=== PATIENT | male | born 1995 | race Hispanic/Latino ===

== ENCOUNTER 2020-06-30 21:16 | Inpatient (IN) | payer SELFPAY ==
[~2020-06-30 21:16] MED LIST: Iopamidol-370 76% 500 ML 1 ML ONE
[2020-06-30 21:47] LABS: #Eosinphils 0.1 thou/uL (0.0-0.7); #Lymphocytes 1.6 thou/uL (1.20-3.40); #Monocytes 1.2 thou/uL (0.11-0.59); #Neutrophils 9.6 thou/uL (1.40-6.50); %Eosinophils 0.8 % (0.0-10.0); %Lymphocytes 13.1 % (21.0-51.0); %Monocytes 9.5 % (0.0-10.0); %Neutrophils 76.6 % (42.0-75.0); Hemoglobin 14.4 g/dL (14.0-18.0); Mean Corpuscular HGB CONC 33.5 g/dL (32.0-36.0); Mean Corpuscular Hemoglobin 28.6 pg (27.0-31.0); Mean Corpuscular Volume 85.4 fL (78.0-98.0); Mean Platelet Volume 7.7 fL (7.4-10.4); Platelet Count 261 thou/uL (130-400); RBC Distribution Width 11.2 % (11.5-14.5); Red Blood Cell (RBC) Count 5.05 mill/uL (4.70-6.10); White Blood Cell (WBC) Count 12.5 thou/uL (4.8-10.8)
[2020-06-30 21:52] LABS: INR-International Normal Ratio 1.2; Prothrombin Time 15.6 sec (12.0-14.7)
[2020-06-30 21:53] LABS: PTT 44.7 sec (22.9-36.1)
[2020-06-30 22:07] LABS: ALT (SGPT) 12 U/L (8-55); AST (SGOT) 14 U/L (5-34); Albumin 4.4 g/dL (3.5-5.0); Alkaline Phosphatase 79 U/L (40-110); Anion Gap 17 mmol/L (10-20); BUN (Urea Nitrogen) 14 mg/dL (8.9-20.6); Bilirubin, Total 0.7 mg/dL (0.2-1.2); Calc. Creatinine Clearance 0 mL/min (70-130); Calcium 9.5 mg/dL (7.8-10.44); Carbon Dioxide 25 mmol/L (22-29); Chloride 103 mmol/L (98-107); Glucose 144 mg/dL (70-105); Potassium 3.3 mmol/L (3.5-5.1); Protein, Total 8.4 g/dL (6.0-8.3); Sodium 142 mmol/L (136-145)
[2020-06-30] MEDS ORDERED: Cefepime 2 GM VIAL ONE (22:25)
[2020-06-30] MEDS ORDERED: Vancomycin 1 GM/200 ML BAG ONE (23:17)
--- NOTE | 2020-06-30 23:20 | CT ---
CT ABDOMEN AND PELVIS WITH IV CONTRAST: HISTORY: Right lower quadrant boil which started last week and has been getting worse. FINDINGS: The lung bases are clear. No calcific gallstones are seen liver, spleen, pancreas, adrenal glands and kidneys are normal. No free air, free fluid or lymphadenopathy seen in the abdomen or pelvis. The small bowel loops aren't abnormally dilated. A normal-appearing appendix is present. The aorta is of normal caliber. No acute osseous abnormalities are seen. There is inflammatory change in the subcutaneous fat of the right lower quadrant anterior abdominal w all with with a 4.6 x 2.8 x 4.5 cm fluid collection. IMPRESSION: Findings suspicious for abscess formation in the anterior abdominal wall of the right low er quadrant.
[2020-07-01] MEDS ORDERED: diphenhydrAMINE 50 MG/ML VIAL ONE (00:19)
[2020-07-01] MEDS ORDERED: Lidocaine 1% (PF) 30 ML VIAL ONE ×2 (00:44→02:33)
[2020-07-01] MEDS ORDERED: Midazolam HCl 2 mg/2 ml Vial ONE (00:44)
--- NOTE | 2020-07-01 01:24 | PDOC.FPRHP ---
- History of Present Illness Chief Complaint: abdominal pain, swelling History of Present Illness: This is a 25M who presented to the ED for a worsening RLQ superficial abdominal wound. He first noticed what he thought was an ingrown hair ~7 days ago. He does not remember any inciting injury but says he shaved ~1mo ago; he also states a lot of pressure is put on this area by his jeans. Initially, it was hard and he was placing bandages and "[place]" on it daily, but then the area continued to grow and become more red, painful, warm. On Wednesday it blistered and he decided to pop it. It drained blood but no pus or discolored drainage. That day he started feeling malaise and like he might have a fever but did not take his temp. Since then, it has continued to drain and he has continued to feel poorly. His mom finally convinced him to come in to get it evaluated. In the ED, he was found to be febrile, tachycardic, with a WBC of 12.5, so he received 1L NS, Vancomycin, and Cefepime. A CT abdomen/pelvis showed a 4.6 x 2.8 x 4.5 cm fluid collection in the ant abdominal wall of the RLQ. An I&D was attempted but nothing was expressed. U/S of the abscess did not show an accessible fluid collection. ED Course: Vancomycin, Cefepime, Midazolam, Benadryl, 1L NS bolus - Allergies/Adverse Reactions Allergies Allergy/AdvReac Type Severity Reaction Status Date / Time No Known Allergies Allergy Unverified 07/01/20 02:51 - History PMHx: None PSHx: None FHx: Noncontributory Social: Social drinker, no tobacco/drugs - Review of Systems General: reports: fever/chills Eyes: denies: vision changes ENT: denies: nasal congestion Respiratory: denies: cough, congestion, shortness of breath Cardiovascular: denies: chest pain, palpitation Gastrointestinal: reports: abdominal pain. denies: nausea, vomiting, diarrhea Genitourinary: denies: dysuria Skin: denies: rashes, itching Musculoskeletal: denies: pain, swelling - Vital signs BP: 128/74, MAP: 92, Pulse: 85, Resp: 16, Pain: 4, O2 sat: 100 on (Room Air), T 99.8F - Physical Exam Constitutional: NAD, awake, alert and oriented, well developed HEENT: normocephalic and atraumatic, EOMI, grossly normal vision, grossly normal hearing Neck: supple, FROM, trachea midline Chest: no-tender to palpation, no lesions Heart: RRR, normal S1/S2, no murmurs/rubs/gallops, no edema Lungs: CTAB, no respiratory distress, good air movement Abdomen: bowel sounds present, no masses/distention -Abdomen: Indurated, erythematous, edematous region surrounding the mouth of the abscess. There is a 5x3cm opening with jagged edges and some pus. It is tender to palpati on. There is no tenderness in the surrounding abdomen and bowel sounds are present. No peritoneal signs. Musculoskeletal: normal structure, normal tone, ROM grossly normal Neurological: no focal deficit Skin: no rash/lesions Heme/Lymphatic: no unusual bruising or bleeding Psychiatric: normal mood and affect, good judgment and insight, intact recent and remote memory FMR H&P: Results - Labs Result Diagrams: 07/01/20 05:32 07/01/20 05:32 Lab results: WBC 12.5 thou/uL (4.8-10.8) H 06/30/20 21:31 Hgb 14.4 g/dL (14.0-18.0) 06/30/20 21:31 Hct 43.1 % (42.0-52.0) 06/30/20 21:31 MCV 85.4 fL (78.0-98.0) 06/30/20 21:31 Plt Count 261 thou/uL (130-400) 06/30/20 21:31 Neutrophils % 76.6 % (42.0-75.0) H 06/30/20 21:31 Sodium 142 mmol/L (136-145) 06/30/20 21:31 Potassium 3.3 mmol/L (3.5-5.1) L 06/30/20 21:31 Chloride 103 mmol/L (98-107) 06/30/20 21:31 Carbon Dioxide 25 mmol/L (22-29) 06/30/20 21:31 BUN 14 mg/dL (8.9-20.6) 06/30/20 21:31 Creatinine 1.18 mg/dL (0.7-1.3) 06/30/20 21:31 Glucose 144 mg/dL (70-105) H 06/30/20 21:31 Lactic Acid 1.1 mmol/L (0.5-2.2) 06/30/20 21:31 Calcium 9.5 mg/dL (7.8-10.44) 06/30/20 21:31 Total Bilirubin 0.7 mg/dL (0.2-1.2) 06/30/20 21:31 AST 14 U/L (5-34) 06/30/20 21:31 ALT 12 U/L (8-55) 06/30/20 21:31 Alkaline Phosphatase 79 U/L (40-110) 06/30/20 21:31 Serum Total Protein 8.4 g/dL (6.0-8.3) H 06/30/20 21:31 Albumin 4.4 g/dL (3.5-5.0) 06/30/20 21:31 - Radiology Interpretation CT scan - abdomen Status: report reviewed by me (Findings suspicious for ant abdominal wall abscess) CT scan - pelvis Status: report reviewed by me (Same as above) FMR H&P: A/P - Plan This is a 25M who presented to the ED for abdominal redness, pain, swelling and found to have an abscess with cellulitis. Sepsis 2/2 abscess and cellulitis - Tachycardic, febrile, WBC 12.5 on arrival. Resolved s/p 1L NS bolus. - CT abdomen/pelvis shows 4.6 x 2.8 x 4.5 cm fluid collection concerning for abscess - LA 1.1 - Procal pending - Vancomycin, Cefepime (07/01) in the ED. Continue - BCx, wound Cx pending - Wound care consulted - mIVF LR 110mL/h - Cellulitis outlined for reference. Will transition to PO abx pending clinical improvement and/or culture/sensitivity results Hypokalemia - K 3.3 on arrival - Monitor was am BMP. Replete as needed Dispo: medical obs. IVF: LR 110mL/h Diet: Regular GI ppx: None DVT ppx: SCDs Code: Full PCP: None FMR H&P: Upper Level - Plan Date/Time: 07/01/202 Tasha Hernandes MD, have evaluated this patient and agree with findings/plan as outlined by information technology internship resident. Pertinent changes/additions are listed here. This is a 25yo M here with CC of pain and swelling in his right lower abdomen that has worsened over the last week. He states that 2 days ago he tried to pop it and was able to express purulent fluid. Since then, he reports increasing, pain, swelling and redness to the area. Endorses fever and chlls. Denies NVD. Endorses abd pain in location of wound. Denies chest pain, SOB, palpitations. He has never had a staph skin infection before, no hx of abscesses previously. He reports he is feeling better since getting the abscess drained. He stood up d uring exam and said the pain felt better. See inter note for full HPI details PE: no acute distress, NCAT, EOMI, RRR, no murmur, CTAB, abd soft, TTP in RLQ over wound and surrounding, RLQ with area of erythema, induration and purulent drainage from open jagged wound about 5x3 cm, FROM, nonfocal neuro exam, axox3 Plan: Sepsis 2/2 abdominal abscess with cellulitis WBC 12.5, no bands, mild left shift. CT abd showing 4.6 x 2.8 x 4.5 cm fluid collection in RLQ ant abdomen. ER resident was not able to do I&D as wound was already open and draining. - Will continue vanc and cefepime and transition to oral after cx results - procal pending - B cx pending, wound culture - Wound care consulted - mIVF and encouraged PO hydration - Erythema marked and will continue to monitor to ensure improvement Hypokalemia - Will monitor, recheck in AM Dispo: admit to medical, obs Diet: Reg Code: FULL PCP: none - CC Case to be discussed with morning attending Addendum - Attending - Attending Attestation Date/Time: 07/01/20 4596 I personally evaluated the patient and discussed the management with Dr. Surekha Monaco. I agree with the History, Examination, Assessment and Plan documented above with any addition or exceptions noted below. No palpable abscess. Wound is draining freely. WOound care and IV antibiotics. Culture pending.
[2020-07-01] MEDS ORDERED: Acetaminophen 325 MG TAB PO PRN (02:32)
[2020-07-01] MEDS ORDERED: Acetaminophen 650 MG Suppository PR PRN (02:32)
[2020-07-01] MEDS ORDERED: Ondansetron PF 4 MG/2 ML Vial IVP PRN (02:32)
[2020-07-01] MEDS ORDERED: Ondansetron ODT 4 MG TAB PO PRN (02:32)
[2020-07-01] MEDS ORDERED: Lidocaine 4% Topical Sol 50 ML BOT ONE (02:33)
[2020-07-01] MEDS ORDERED: Lidocaine 1% PF 5 ML VIAL ONE (02:33)
[2020-07-01] MEDS: Lactated Ringer's 1,000 ML IV SCH ×2 (05:48→17:57)
[2020-07-01] MEDS ORDERED: Cefepime 2 GM in Sodium Chloride 0.9% 100 ML IVPB SCH (06:00)
[2020-07-01 06:02] LABS: #Eosinphils 0.1 thou/uL (0.0-0.7); #Lymphocytes 1.5 thou/uL (1.20-3.40); #Monocytes 1.2 thou/uL (0.11-0.59); %Basophils 0.3 % (0.0-1.0); %Eosinophils 1.1 % (0.0-10.0); %Lymphocytes 13.5 % (21.0-51.0); %Monocytes 11.4 % (0.0-10.0); %Neutrophils 73.7 % (42.0-75.0); Hemoglobin 12.9 g/dL (14.0-18.0); Mean Corpuscular HGB CONC 33.1 g/dL (32.0-36.0); Mean Corpuscular Volume 84.5 fL (78.0-98.0); Mean Platelet Volume 7.7 fL (7.4-10.4); Platelet Count 274 thou/uL (130-400); RBC Distribution Width 11.2 % (11.5-14.5); Red Blood Cell (RBC) Count 4.63 mill/uL (4.70-6.10); White Blood Cell (WBC) Count 10.8 thou/uL (4.8-10.8)
[2020-07-01 06:16] LABS: Anion Gap 15 mmol/L (10-20); BUN (Urea Nitrogen) 12 mg/dL (8.9-20.6); Calc. Creatinine Clearance 107 mL/min (70-130); Calcium 8.4 mg/dL (7.8-10.44); Carbon Dioxide 22 mmol/L (22-29); Chloride 107 mmol/L (98-107); Glucose 90 mg/dL (70-105); Potassium 3.6 mmol/L (3.5-5.1); Sodium 140 mmol/L (136-145)
[2020-07-01] MEDS ORDERED: Cefepime 2 GM VIAL ONE (06:17)
[2020-07-01] MEDS ORDERED: Vancomycin 1 GM in Premix Bag 1 BAG IVPB SCH (11:00)
[2020-07-01 13:24] LABS: SARS-CoV-2 PCR by NAA Not Detected (NotDetected)
[2020-07-01] MEDS: Vancomycin HCl 1.25 GM in Sodium Chloride 0.9% 250 ML 250 ML IVPB SCH (17:56)
[2020-07-02] MEDS: Lactated Ringer's 1,000 ML IV SCH ×2 (00:22→03:41)
--- NOTE | 2020-07-02 05:44 | PDOC.FM ---
- Subjective Subjective: Pt resting comfortably in bed this AM. No acute events overnight. Has remained afebrile. Not complaining of any pain. - Objective MAR Reviewed: Yes Vital Signs & Weight: Vital Signs (12 hours) Temp Pulse Resp BP BP Pulse Ox 07/02/20 03:44 97.8 F 88 18 137/61 99 07/01/20 23:50 97.9 F 77 16 131/72 97 07/01/20 19:28 99.8 F H 92 16 120/66 98 Weight Weight 68 kg I&O: 06/30/20 07/01/20 07/02/20 06:59 06:59 06:59 Intake Total 1499 Output Total 800 Balance 699 Result Diagrams: 07/02/20 07:11 07/02/20 07:11 Phys Exam - Physical Examination Constitutional: NAD HEENT: moist MMs Neck: supple Respiratory: no wheezing, no rales, no rhonchi, clear to auscultation bilateral Cardiovascular: RRR, no significant murmur, no rub Gastrointestinal: soft, non-tender, no distention, positive bowel sounds Musculoskeletal: pulses present Neurological: normal sensation Psychiatric: normal affect, A&O x 3 Skin: normal turgor Deviation from normal: induration seems improved from yesterday, bandage over wound noted -: some expression of blood/purulent material from wound Dx/Plan - Plan Plan: This is a 25M who presented to the ED for abdominal redness, pain, swelling and found to have an abscess with cellulitis. Sepsis 2/2 abscess and cellulitis - CT abdomen/pelvis shows 4.6 x 2.8 x 4.5 cm fluid collection concerning for abscess - LA 1.1, Procal 0.12, WBC 12.5-->10.8, pending labs this AM - Vancomycin, Cefepime (07/01) in the ED. Continued with vancomycin for now - BCx, wound Cx pending so far preliminary growing gram positive cocci and pairs - Wound care consulted and has been seeing patient - Cellulitis outlined for reference. Will transition to PO abx pending clinical improvement and/or culture/sensitivity results - F/u conversation reveals no ETOH or drug use. Quit smoking 1 month ago. Had been smoking since 17 y/o. Hypokalemia - K 3.3 on arrival--> 3.6 -BMP this AM pending Diet: Regular GI ppx: None DVT ppx: SCDs Code: Full PCP: None Dispo as of 07/02/20: Admitted to medical observation. Awaiting bcx and wound clx finalize. Continue with abx. Monitoring for improvement today. Addendum - Attending - Attending Attestation Date/Time: 07/03/20 0621 I personally evaluated the patient and discussed the management with Dr. Benson yesterday. I agree with the History, Examination, Assessment and Plan documented above with any addition or exceptions noted below.
[2020-07-02] MEDS: Vancomycin HCl 1.25 GM in Sodium Chloride 0.9% 250 ML 250 ML IVPB SCH ×2 (06:18→18:36)
[2020-07-02 07:43] LABS: Anion Gap 14 mmol/L (10-20); BUN (Urea Nitrogen) 9 mg/dL (8.9-20.6); Calc. Creatinine Clearance 126 mL/min (70-130); Calcium 8.8 mg/dL (7.8-10.44); Carbon Dioxide 24 mmol/L (22-29); Chloride 107 mmol/L (98-107); Glucose 88 mg/dL (70-105); Potassium 3.8 mmol/L (3.5-5.1); Sodium 141 mmol/L (136-145)
[2020-07-02 08:45] LABS: Band 3 % (5-11); Eosinophils 4 % (0-10); Hemoglobin 13.5 g/dL (14.0-18.0); Lymphocytes 33 % (21-51); MDiff Complete? YES; Mean Corpuscular HGB CONC 33.2 g/dL (32.0-36.0); Mean Corpuscular Hemoglobin 28.5 pg (27.0-31.0); Mean Corpuscular Volume 85.8 fL (78.0-98.0); Mean Platelet Volume 7.3 fL (7.4-10.4); Monocytes 11 % (0-10); Neutrophil 49 % (42-75); Platelet Count 283 thou/uL (130-400); RBC Distribution Width 11.2 % (11.5-14.5); RBC Morphology Normal; Red Blood Cell (RBC) Count 4.74 mill/uL (4.70-6.10); White Blood Cell (WBC) Count 6.8 thou/uL (4.8-10.8)
[2020-07-02 13:14] VITALS: BMI 22.1
[2020-07-02 18:09] LABS: Vancomycin, Trough 8.5 ug/mL
[2020-07-02] MEDS: Vancomycin 1 GM in Premix Bag 1 BAG IVPB SCH (18:20)
[2020-07-03] MEDS: Vancomycin 1 GM in Premix Bag 1 BAG IVPB SCH ×2 (02:50→09:58)
--- NOTE | 2020-07-03 06:05 | PDOC.FM ---
- Subjective Subjective: Pt resting in bed this AM. No acute events overnight. Has remained afebrile. - Objective Vital Signs & Weight: Vital Signs (12 hours) Temp Pulse Resp BP Pulse Ox 07/03/20 02:51 98.1 F 76 16 127/94 H 99 07/02/20 19:13 98.5 F 75 12 106/68 99 Weight Admit Weight 67.998 kg Weight 68 kg I&O: 07/01/20 07/02/20 07/03/20 06:59 06:59 06:59 Intake Total 1499 Output Total 800 Balance 699 Result Diagrams: 07/02/20 07:11 07/02/20 07:11 Phys Exam - Physical Examination Constitutional: NAD HEENT: moist MMs Neck: supple Respiratory: no wheezing, no rales, no rhonchi, clear to auscultation bilateral Cardiovascular: RRR, no significant murmur, no rub Gastrointestinal: soft, non-tender, no distention, positive bowel sounds Musculoskeletal: pulses present induration has improved, still packed with wound dressing Neurological: normal sensation Psychiatric: normal affect, A&O x 3 Skin: no rash, normal turgor, cap refill <2 seconds Dx/Plan - Plan Plan: This is a 25M who presented to the ED for abdominal redness, pain, swelling and found to have an abscess with cellulitis. Sepsis 2/2 abscess and cellulitis - CT abdomen/pelvis shows 4.6 x 2.8 x 4.5 cm fluid collection concerning for abscess - LA 1.1, Procal 0.12, WBC 12.5-->10.8-->6.8 - Vancomycin, Cefepime (07/01) in the ED. Continued with vancomycin - BCx, wound Cx pending so far preliminary s. aureus and sensitivities pending - Wound care consulted and has been seeing patient. In discussion with them yesterday, apparently wound looks similar to a brown recluse bite. Pt apparently had presentation and findings suggestive of what these wounds tend to look like. Pt has also had necrotic-like drainage from wound that was also suggestive of brown recluse spider bite. Pt denies feeling/seeing a spider bite. - Cellulitis outlined for reference. Will transition to PO abx pending clinical improvement and/or culture/sensitivity results - F/u conversation reveals no ETOH or drug use. Quit smoking 1 month ago. Had been smoking since 17 y/o. Hypokalemia, rssolved - K 3.3 on arrival--> improved to 3.6 - BMP wnl Diet: Regular GI ppx: None DVT ppx: SCDs Code: Full PCP: None Dispo as of 07/03/20: Will switch to PO abx bactrim today. Wound care to teach dressing changes. Will d/c later today. Addendum - Attending - Attending Attestation Date/Time: 07/04/20 0704 I personally evaluated the patient and discussed the management with Dr. Benson yesterday. I agree with the History, Examination, Assessment and Plan documented above with any addition or exceptions noted below.
[2020-07-03] MEDS ORDERED: Sodium Chloride 0.9% 10 ML ONE (09:57)
[2020-07-03 14:41] VITALS: BP 107/65; TEMP 98.6
--- NOTE | 2020-07-04 12:11 | DIS ---
DATE OF ADMISSION: 07/02/2020 DATE OF DISCHARGE: 07/03/2020 CONSULTS: None. PROCEDURES: Abdominal and pelvis CT done on 06/30/2020 showed findings suspicious for abscess formation in the anterior abdominal wall of the right lower quadrant. PRIMARY DIAGNOSES: Sepsis secondary to abdominal wall cellulitis, hypokalemia. SECONDARY DIAGNOSIS: None. DISCHARGE MEDICATIONS: Bactrim DS 1 tab p.o. b.i.d. for 12 days for a total of 14 days therapy. Discontinued medications: None. HISTORY OF PRESENT ILLNESS/HOSPITAL COURSE: This is a 25-year-old male who presented to the emergency department for worsening right lower quadrant superficial abdominal wound. He first noticed that he thought was an ingrown hair 7 days prior to admission. He does not remember any inciting injury, but said that he shaved about a month ago and states that he puts a lot of pressure in this area with his jeans. Initially, he said it was hard on presentation, was placing bandages and [id number] ointment on a daily basis, but then the area continued to grow, became more red, painful and warm. On the Wednesday prior to admission, it blistered and he decided to pop it. It drained blood, but no pus or discolored drainage. That day, he started to feel malaise and that he might have a fever, but did not take his temperature. Since then, the wound had continued to drain and he had continued to feel poorly. Mom had convinced him to come to the ER to get evaluated. In the ER, he was found to be febrile, tachycardic and had a white count of 12.5. He received 1 L of normal saline, vancomycin and cefepime. CT abdomen and pelvis shows findings as above of a 4.6 x 2.8 x 4.5 cm fluid collection in the anterior abdominal wall. An I and D were attempted, but nothing was expressed. Ultrasound of the abscess did show an accessible fluid collection. Wound cultures and blood cultures were obtained. The patient was continued on vancomycin and cefepime for 1 day and then was continued on vancomycin for the rest of his hospitalization. Blood cultures did not show any growth. Wound cultures showed Staphylococcus aureus, which was susceptible to Bactrim. The patient's white count trended downwards and patient was not afebrile during his hospitalization. Wound care came to address wound daily and patient was taught how to pack the wound. Risk factors were addressed. The patient was not diagnosed with diabetes nor had a family history of it. He was not an IV drug user or drink any alcohol. He did admit to history of smoking, otherwise had no prior medical history who was advised that patient was established with a primary care physician, as he did not have one upon discharge. The patient was given supplies for wound care and was taught how to address this. Return precautions were given. DISPOSITION: Stable. DISCHARGE INSTRUCTIONS: 1. Location, home. 2. Diet, regular. 3. Activity, as tolerated. 4. Follow up within 7 to 10 days with primary care physician as needed. Job ID: [id number]
== END 2020-07-03 13:55 | disposition home or self-care (01) | DRG 872 ==
LOC: ERS 21:16 → ERHOLD 07-01 02:23 → 3SE 07-01 09:59 → OBSVTOIN 07-02 13:29
PROVIDERS: ADMIT Family Medicine; ATTEND Family Medicine
DX: A41.01 Sepsis due to Methicillin susceptible Staphylococcus aureus (principal); L02.211 Cutaneous abscess of abdominal wall; L03.311 Cellulitis of abdominal wall; E87.6 Hypokalemia
CPT/HCPCS: 36415; 74177; 80048; 80053; 80202; 83605; 84145; 85007; 85025; 85027; 85610; 85730; 87040; 87070; 87077; 87186; 87205; 87635; 94760; 96365; 96367; 96375; 96376; G0378; J0692; J1200; J2001; J2250; J3370; J3490; J7050; Q9967; U0003; U0005